=== PATIENT | male | born 1940 | race Caucasian/White ===

== ENCOUNTER 2018-05-26 12:35 | Outpatient (CLI) | payer MEDICARE, OTHER, SELFPAY ==
--- NOTE | 2018-05-26 12:38 | DI.RAD.S_ITS ---
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 COMPARISON: [facility], MR, MR LUMBAR SPINE WITHOUT CONTRAST, 02/09/2018, 15:20. [facility], CR, SPINE LUMB MIN 4VW, 06/05/2014, 14:13. FINDINGS: Bones: No fracture or focal osseous destruction. There is mild anterior wedging of the T12 vertebral body, unchanged. Mild narrowing of the lumbar disc spaces throughout is grossly unchanged. There is prominent anterior plate osteophyte formation, and possible syndesmophyte formation at T11-T12 and T10-T11. There is ankylosis of the right sacroiliac joint. There is also left sacroiliac sclerosis. Facet arthropathy primarily from L3-S1. Soft tissues: Overlying bowel gas pattern is normal. No suspicious soft tissue calcifications. Oblique images: No pars defects. IMPRESSION: Diffuse lumbar disc degeneration as detailed above and facet arthropathy, probably unchanged since 06/05/14. Partially visualized syndesmophyte formation involving the lower thoracic spine in addition to ankylosis of the right sacroiliac joint, suggesting ankylosing spondylitis. Please correlate clinically and with laboratory correlation. Dictated by: Ravin Tejeda M.D. on 05/26/2018 at 13:04 Approved by: Ravin Tejeda M.D. on 05/26/2018 at 13:11
--- NOTE | 2018-05-26 12:38 | DI.RAD.S_ITS ---
PROCEDURE: PAIN L/S TRANSFORAMINAL INJECT INDICATIONS: HNP with left lower extremity radicular FINDINGS: Fluoroscopic spot filming was performed to verify placement of spinal needles at the left L3-4 level(s), as labeled on the films. Appropriate location(s) of the needle tip(s) was confirmed by injection of iodinated contrast. IMPRESSION: Successful left L3-4 needle tip localization for transforaminal epidural steroid injection. Dictated by: Ki Staples M.D. on 05/26/2018 at 16:33 Approved by: Ki Staples M.D. on 05/26/2018 at 16:34
[2018-05-26 13:38] VITALS: BP 143/75; PULSE 58; RESP 18; TEMP 36.1; O2SAT 97
[2018-05-26 14:19] VITALS: BP 146/81; PULSE 55; RESP 16; O2SAT 97
[2018-05-26 14:28] VITALS: BP 138/83; PULSE 55; RESP 16; O2SAT 97
--- NOTE | 2018-05-26 14:28 | P.PCN_ITS ---
Procedures Date/Time Date of procedure: 05/26/18 Time of procedure: 14:26 General Procedure description: PROVIDER: Matt Daniel DO Operative Note PREOP DIAGNOSIS 1. FORAMINAL STENOSIS WITH LE SYMPTOMS, POST OP DIAGNOSIS 1. FORAMINAL STENOSIS WITH LE SYMPTOMS, PROCEDURES 1. FLUOROSCOPICALLY GUIDED CONTRAST CONTROLLED TRANSFORAMINAL EPIDURAL STEROID INJECTION - LEFT L3/4 TFESI SURGEON: Matt Daniel DO INDICATIONS: Matt is referred by Dr. Giron for treatment of Foraminal Stenosis with left LE Symptoms FINDINGS Foraminal Nerve Root Compression secondary to disc disease and facet hypertrophy DESCRIPTION OF PROCEDURE Following denial of allergy and review of potential side effects and complications, including, but not necessarily limited to, infection, allergic reaction, local tissue breakdown, stroke, temporary or permanent nerve injury, paralysis, and possible , the patient indicated that the patient understood and agreed to proceed. An informed consent document was signed by the patient, witnessed by a nurse, and placed in the patient's chart. Additionally, other treatment options including medications, modalities, and physical therapy were reviewed with the patient. After review of previous anaesthesic history and IV conscious sedation the patient was deemed safe to proceed with todays procedure with IV conscious sedation as ASA class II designation. Safety time-out was performed to confirm patient ID, procedure to be performed and site of procedure. IV sedation was not administered the patient remained responsive to all verbal commands In the prone position following sterile prep and drape of the lumbar region, the left L3/4 posterior neuroforamen was identified fluoroscopically. The skin was anesthetized via a 25-gauge 1.5-inch needle with 1% lidocaine solution. At this point, a 25-gauge 3.5-inch spinal needle was atraumatically introduced and advanced under fluoroscopic guidance through the posterior left L3/4 neuroforamen to approximately the anterior aspect of the canal. Depth was confirmed on lateral view. Following negative aspiration, injection of approximately 1.5 cc of Isovue 200 under live fluoroscopy in the AP view confirmed excellent flow along the nerve root, into the epidural space without vascular or intrathecal uptake observed Radiological data, including multiple fluoroscopic views of the lumbosacral spine, reveal a spinal needle at the left L3/4 posterior neuroforamen. Subsequent views show flow of contrast material flowing superiorly and inferiorly along the nerve root confirming epidural flow. Subsequently, a test dose of 1.5 cc of 1% lidocaine solution was administered and patient was observed for two minutes for signs or symptoms of complications , including abdominal pain, shortness of breath, bilateral upper or lower extremity weakness, nausea and vomiting, prior to steroid injection. At this point, a total of 3 cc or 20 mg of dexamethasone and 80mg Depo medrol was injected without incident. The procedure tolerated the procedure well without signs or symptoms of complications prior to transfer to the recovery area continued monitoring without incident. The patient was then transferred to the recovery area where they were observed for an appropriate time after the injection. The patient reported a VAS score of 7 prior to the procedure and a post-procedure VAS of 0. Total Fluoroscopy Time: 24.2 seconds Total Conscious Sedation Time: 0min POST OP INSTRUCTIONS The patient was provided a Pain Log to continue to record their response to the target-specific procedure prior to follow-up visit with their referring physician. Additionally, specific post-injection care instructions and a contact number to our office were provided if concerns arise regarding possible complications associated with the procedure are suspected. Matt Daniel DO Complications: none
[2018-05-26 14:35] VITALS: BP 146/83; PULSE 65; RESP 16; O2SAT 95
[2018-05-26] MEDS: BUPIVACAINE 0.25% (PF) VIAL 2 ML INJ (14:38)
[2018-05-26] MEDS: IOPAMIDOL 15 ML VIAL 3 ML INJ (14:38)
[2018-05-26] MEDS: DEXAMETHASONE 10 MG/ML VIAL 20 MG INJ (14:38)
[2018-05-26] MEDS: methylPREDNISolone acetate 80 MG/ML VIAL INJ (14:38)
[2018-05-26 14:45] VITALS: BP 143/72; PULSE 59; RESP 18; O2SAT 99
== END 2018-05-26 15:04 | disposition home or self-care (01) ==
PROVIDERS: PCP Family Medicine; Visit Provider Physical Medicine & Rehabilitation
DX: M48.061 Spinal stenosis, lumbar region without neurogenic claudication (principal); M51.16 Intervertebral disc disorders with radiculopathy, lumbar region; M47.27 Other spondylosis with radiculopathy, lumbosacral region; Z96.652 Presence of left artificial knee joint
CPT/HCPCS: 64483; 72110; J1040; J1100

== ENCOUNTER → 2020-04-11 12:46 | Outpatient (CLI) | payer MEDICARE, OTHER, SELFPAY ==
--- NOTE | 2020-04-11 12:49 | DI.RAD.S_ITS ---
PROCEDURE: XR LUMBAR SPINE MIN 4V INDICATIONS: Ankylosing spondylitis TECHNIQUE: 4 views of the lumbar spine were acquired. COMPARISON: [facility], MR, MR LUMBAR SPINE WO CON, 04/11/2020, 13:09. [facility], CR, XR LUMBAR SPINE MIN 4V, 05/26/2018, 12:15. FINDINGS: Bones: 5 nonrib-bearing vertebrae are present. There is normal bony alignment. No vertebral body compression fractures. Moderate-sized bridging osteophytes or syndesmophytes appear similar the prior exam. L4-L5 L5-S1 facet joint hypertrophy. No suspicious bony lesions. Soft tissues: Overlying bowel gas pattern is normal. No suspicious soft tissue calcifications. Oblique images: No pars defects. IMPRESSION: Overall no significant interval change. Similar bridging osteophytes or syndesmophytes. No compression fracture. Dictated by: Naren Lopez M.D. on 04/11/2020 at 14:11 Approved by: Naren Lopez M.D. on 04/11/2020 at 14:16
--- NOTE | 2020-04-11 12:49 | DI.RAD.S_ITS ---
PROCEDURE: XR CERVICAL SPINE 2V OR 3V INDICATIONS: Ankylosing spondylitis TECHNIQUE: 4 view(s) of the cervical spine were acquired. COMPARISON: None. FINDINGS: Bones: No fractures or dislocations to the T1 level. The lateral masses of C1 appear intact on the odontoid view. No suspicious bony lesions. Moderate to severe degenerative change most pronounced at C4-C5 and C5-C6. Soft tissues: No prevertebral soft tissue swelling. IMPRESSION: Moderate degenerative change in the cervical spine. Dictated by: Naren Lopez M.D. on 04/11/2020 at 14:16 Approved by: Naren Lopez M.D. on 04/11/2020 at 14:18
--- NOTE | 2020-04-11 12:49 | DI.MRI.S_ITS ---
PROCEDURE: MR LUMBAR SPINE WO CON INDICATIONS: Ankylosing spondylitis TECHNIQUE: Noncontrast sagittal T1 spin echo and T2 fast echo, sagittal STIR, axial T1 and T2 fast spin echo through the lumbar spine. In cases with scoliosis, additional coronal T2 fast spin echo may be performed. COMPARISON: [facility], MR, MR LUMBAR SPINE WITHOUT CONTRAST, 02/09/2018, 15:20. [facility], CR, XR LUMBAR SPINE MIN 4V, 05/26/2018, 12:15. [facility], MR, L-SPINE WITHOUT CONTRAST, 06/14/2014, 13:40. FINDINGS: Image quality: Excellent. Alignment and Curvature: 5 lumbar type vertebral bodies present by plain film. There is loss of normal lumbar lordosis. Mild kyphosis at T11-L1. Mild grade 1 retrolisthesis of L2 on L3 and L3 on L4. Bone Marrow: Marrow is of normal overall signal. There is a new Schmorl's node invaginating the superior L3 endplate with moderate surrounding reactive signal. No acute vertebral body compression fractures. Moderate reactive signal within the endplates adjacent to the L2-L3 and L4-L5 intervertebral discs, which is increased. Mild reactive signal within the endplates adjacent to the L1-L2, L3-L4, and L5-S1 intervertebral discs. Spinal Cord: Conus medullaris terminates at the lower L1 level. Visualized cord demonstrates normal signal and size. Paraspinous Soft Tissues: No paravertebral masses. L1-L2: Mild disc desiccation. Mild facet and ligament flavum hypertrophy. Mild epidural lipomatosis. Mild canal stenosis. No foraminal stenosis. L2-L3: Moderate disc desiccation. Mild disc height loss. Mild diffuse disc bulge. Mild facet and ligamentum hypertrophy. Mild epidural lipomatosis. Mild canal stenosis. Mild bilateral foraminal stenosis. L3-L4: Moderate disc height loss and desiccation. Mild diffuse disc bulge with superimposed broad-based left posterolateral protrusion. Mild facet and ligamentum flavum hypertrophy. Mild epidural lipomatosis. Increased, moderate canal stenosis. No change in mild bilateral foraminal stenosis. L4-L5: Mild disc height loss. Moderate disc desiccation. Mild diffuse disc bulge. Moderate facet and ligamentum flavum hypertrophy. Mild epidural lipomatosis. Increased, moderate canal stenosis. No change in moderate subarticular foraminal stenosis bilaterally. L5-S1: Moderate disc desiccation. Mild disc height loss. Mild diffuse disc bulge. Mild bilateral facet hypertrophy. Mild canal stenosis. Mild left greater than right foraminal stenosis. No change. IMPRESSION: 1. Multilevel degenerative disc and facet disease, as well as ligamentum flavum hypertrophy and epidural lipomatosis. 2. Multilevel canal stenoses, worst at L3-L4 and L4-L5, where there are increased, moderate canal stenoses. 3. Multilevel foraminal stenoses, worst at L4-L5 where there are moderate foraminal stenoses. 4. New Schmorl's node within the superior L3 endplate, possibly developed recently, given the reactive surrounding marrow signal. Dictated by: Bandar Moss M.D. on 04/11/2020 at 13:53 Approved by: Bandar Moss M.D. on 04/11/2020 at 13:58
== END ==
PROVIDERS: PCP Family Medicine; Referring Provider Physical Medicine & Rehabilitation; Visit Provider Physical Medicine & Rehabilitation
DX: M45.9 Ankylosing spondylitis of unspecified sites in spine (principal); M47.26 Other spondylosis with radiculopathy, lumbar region; M47.27 Other spondylosis with radiculopathy, lumbosacral region; M48.061 Spinal stenosis, lumbar region without neurogenic claudication; M48.07 Spinal stenosis, lumbosacral region; E88.2 Lipomatosis, not elsewhere classified
CPT/HCPCS: 72040; 72110; 72148

== ENCOUNTER → 2020-05-08 10:43 | Outpatient (CLI) | payer MEDICARE, OTHER, SELFPAY ==
[2020-05-08 12:04] LABS: COVID19 -Nasal RAPID Negative (Negative)
== END ==
PROVIDERS: PCP Family Medicine; Visit Provider Physician Assistant
DX: Z01.812 Encounter for preprocedural laboratory examination (principal)
CPT/HCPCS: 87635

== ENCOUNTER 2020-05-08 12:16 | Outpatient (CLI) | payer MEDICARE, OTHER, SELFPAY ==
--- NOTE | 2020-05-08 12:17 | DI.RAD.S_ITS ---
PROCEDURE: PAIN L/S FACET INJ/BLK 1ST YASIR COMPARISON: None. INDICATIONS: SPODYLOSIS FINDINGS: On these intraprocedural images, spinal needles are seen on both sides at L2-3 and L3-4, as labeled on the images. Appropriate location of the needle tips is confirmed by injection of a small amount of iodinated contrast. IMPRESSION: Intraprocedural examination within normal limits. Dictated by: Thony Jalloh M.D. on 05/09/2020 at 9:07 Approved by: Thony Jalloh M.D. on 05/09/2020 at 9:07
[2020-05-08 12:26] VITALS: BP 140/82; PULSE 77; RESP 18; TEMP 36.2; O2SAT 97
[2020-05-08 13:11] VITALS: BP 139/80; PULSE 73; RESP 16; O2SAT 94
[2020-05-08] MEDS: BETAMETHASONE 30 MG/5 ML MDV 12 MG INJ (13:12)
[2020-05-08] MEDS: BUPIVACAINE 0.5% (PF) VIAL 2 ML INJ (13:12)
[2020-05-08] MEDS: IOPAMIDOL 15 ML VIAL 3 ML INJ (13:12)
[2020-05-08] MEDS: LIDOCAINE 1% 20 ML 10 ML INJ (13:13)
[2020-05-08 13:15] VITALS: BP 140/85; PULSE 76; RESP 16; O2SAT 94
[2020-05-08 13:20] VITALS: BP 139/84; PULSE 94; RESP 17; O2SAT 93
[2020-05-08 13:25] VITALS: BP 149/99; PULSE 77; RESP 15; O2SAT 94
--- NOTE | 2020-05-08 13:32 | P.PCN_ITS ---
Date/Time/Diagnoses Date of procedure: 05/08/20 Time of procedure: 13:32 Pre-procedure diagnosis: 1. FACET ARTHROPATHY 2. AXIAL LBP 3. MULTILEVEL DDD Post-procedure diagnosis: same Procedure Notes Procedure: 1. FLUOROSCOPICALLY GUIDED CONTRAST CONTROLLED FACET JOINT INJECTIONS BILATERAL L2/3, L3/4 Indications: Matt is referred by for treatment of Axial LBP Physician: Matt Daniel Total Fluoroscopy time (seconds): 22 Total sedation minutes: 0 Complications: none Procedure in detail & Post-procedure care: FINDINGS Multilevel Facet Arthropathy with Clinically significant axial LBP DESCRIPTION OF PROCEDURE Fluoroscopically guided, contrast-controlled bilateral L2/3, L3/4 facet joint injections. Following review of allergy and review of potential side effects and complications, including, but not necessarily limited to, infection, allergic reaction, local tissue breakdown, stroke, temporary or permanent nerve injury, paralysis, and possible , the patient indicated that the patient understood and agreed to proceed. An informed consent document was signed by the patient, witnessed by a nurse, and placed in the patient's chart. Additionally, other treatment options including medications, modalities, and physical therapy were reviewed with the patient. After review of previous anaesthesic history and IV conscious sedation the patient was deemed safe to proceed with today's procedure with IV conscious sedation as ASA class II designation. Safety time-out was performed to confirm patient ID, procedure to be performed and site of procedure. IV sedation was deemed unnecessary and this not administered by the RN after DO order, titrated to patient comfort during the course of the procedure while the patient remained responsive to all verbal commands In the prone position, following sterile prep and drape of the lumbar region, the posterior aspect of the L2/3, L3/4 facet joints were identified fluoroscopically. The skin was anesthetized via a 25-gauge 1.5-inch needle with 1% lidocaine solution into the corresponding facet joints. At this point, a 22- gauge 3.5-inch spinal needle was atraumatically introduced and advanced under fluoroscopic guidance into the corresponding facet joints. Following negative aspiration, injections of approximately 0.2-cc of Isovue 200 confirmed interarticular placement without vascular uptake. The identical procedure was then performed at the L2/3, L3/4 facet joints on the left. Radiological data, including multiple fluoroscopic views of the lumbosacral spine, reveal a spinal needle at the L2/3, L3/4 facet joints bilaterally. Subsequent views show flow of contrast material both superiorly and inferiorly within the joint space without vascular or intrathecal uptake. At this point, a total of 0.5 cc including a mixture of 0.25cc Marcaine and 0.25cc betamethasone was injected without complication into each of the corresponding facet joints. The patient tolerated the procedure well without signs or symptoms of complications prior to transfer to the recovery area continued monitoring without incident. The patient was then transferred to the recovery area where they were observed for an appropriate period of time after the injection. The patient reported a VAS score of 7 prior to the procedure and a post-procedure VAS of 0. POST OP INSTRUCTIONS The patient was provided a Pain Log to continue to record their response to the target-specific procedure prior to follow-up visit with their referring physician. Additionally, specific post-injection care instructions and a contact number to our office were provided if concerns arise regarding possible complications associated with the procedure are suspected.
[2020-05-08 13:40] VITALS: BP 144/76; PULSE 72; RESP 18; O2SAT 97
--- NOTE | 2020-05-08 13:43 | PC.NURSE ---
1333 pt returned to pre proc room by . No intraop medications given. Independent transfer from to chair. Resumed monitoring by Monique
--- NOTE | 2020-05-08 16:18 | PC.NURSE ---
Pt tolerated procedure well. Vitals stable upon transfer to [facility] in post procedure/recovery room. All meds administered by Dr. Daniel.
== END 2020-05-08 13:45 | disposition home or self-care (01) ==
LOC: RAD 12:17
PROVIDERS: PCP Family Medicine; Referring Provider Physical Medicine & Rehabilitation; Visit Provider Physical Medicine & Rehabilitation
DX: M47.816 Spondylosis without myelopathy or radiculopathy, lumbar region (principal); M54.5 Low back pain; M51.36 Other intervertebral disc degeneration, lumbar region
CPT/HCPCS: 64493; 64494; J0702; J1100

== ENCOUNTER → 2020-06-25 10:58 | Outpatient (CLI) | payer MEDICARE, OTHER, SELFPAY ==
[2020-06-27 06:08] LABS: COVID19 Sendout Not Detected (Not Detect)
== END ==
PROVIDERS: PCP Family Medicine; Visit Provider Physician Assistant
DX: Z11.59 Encounter for screening for other viral diseases (principal)
CPT/HCPCS: 87635

== ENCOUNTER 2020-06-28 07:29 | Outpatient (CLI) | payer MEDICARE, OTHER, SELFPAY ==
[2020-06-28] VITALS (8 sets, daily range): BP systolic 125–158; BP diastolic 68–90; PULSE 67–75; RESP 14–19; TEMP 36.1; O2SAT 95–99
--- NOTE | 2020-06-28 07:34 | DI.RAD.S_ITS ---
PROCEDURE: PAIN L/S FACET INJ/BLK 1ST YASIR COMPARISON: [facility], , PAIN L/S FACET INJ/BLK 1ST YASIR, 05/08/2020, 12:12. INDICATIONS: SPONDYLOSIS FINDINGS: These fluoroscopic images were performed for intraprocedural localization. On these images, bilateral spinal needles are seen at the L2, L3, and L4 levels. The appropriate positions of the tips of the needles were confirmed by injection of a small amount of nonionic contrast. IMPRESSION: Intraprocedural examination within normal limits. Dictated by: Thony Jalloh M.D. on 06/28/2020 at 8:50 Approved by: Thony Jalloh M.D. on 06/28/2020 at 8:51
[2020-06-28] MEDS: IOPAMIDOL 15 ML VIAL 3 ML INJ (08:47)
[2020-06-28] MEDS: LIDOCAINE 1% 20 ML 10 ML INJ (08:47)
[2020-06-28] MEDS: BUPIVACAINE 0.5% (PF) VIAL 5 ML INJ (08:47)
[2020-06-28] MEDS: fentaNYL 100 MCG/2 ML INJ 50 MCG IV (08:48)
[2020-06-28] MEDS: MIDAZOLAM 5 MG/5 ML VIAL IV (08:49)
--- NOTE | 2020-06-28 08:56 | P.PCN_ITS ---
Date/Time/Diagnoses Date of procedure: 06/28/20 Time of procedure: 08:56 Pre-procedure diagnosis: 1. FACET ARTHROPATHY Post-procedure diagnosis: same Procedure Notes Procedure: 1. BILATERAL L2, L3, L4 DIAGNOSTIC MB BLOCKS Indications: Matt is referred by Dr. Giron for treatment of Bilateral Axial LBP. Physician: Matt Daniel Total Fluoroscopy time (seconds): 19 Total sedation minutes: 20 Complications: none Procedure in detail & Post-procedure care: DESCRIPTION OF PROCEDURE Fluoroscopically guided, contrast-controlled bilateral L2, L3, L4 medial branch blocks with 0.5cc of 0.5% Marcaine. Following review of allergy and review of potential side effects and complications, including, but not necessarily limited to, infection, allergic reaction, local tissue breakdown, nerve injury, paralysis, stroke and possible , the patient indicated that the patient understood and agreed to proceed. An informed consent document was signed by the patient, witnessed by a nurse, and placed in the patient's chart. After review of previous anaesthesic history and IV conscious sedation the patient was deemed safe to proceed with today's procedure with IV conscious sedation as ASA class II designation. Safety time-out was performed to confirm patient ID, procedure to be performed and site of procedure. IV sedation was accomplished with a combination of 2mg of Versed and 50mcg of Fentantyl was administered by the RN after DO order, titrated to patient comfort during the course of the procedure while the patient remained responsive to all verbal commands In the prone position, following sterile prep and drape of the lumbar region, the right L2, L3, L4 anatomical location of the medial branch of the dorsal ramus was identified fluoroscopically. Subsequently an anesthetic skin wheal us ing 1% lidocaine solution was initiated at each of the anatomical spots. Subsequently then a 22-gauge 3.5-inch spinal needle was atraumatically introduced and advanced under fluoroscopic guidance at each of the corresponding sites at the right L2, L3, L4 MB. After negative aspiration, 0.2cc of Isovue 200 was injected, confirming placement without vascular or intrathecal uptake. Subsequently then 0.5cc of 0.5% Marcaine solution was injected at each of the corresponding sites at the right L2, L3, L4 medial branch locations. The identical procedure was replicated on the left. The patient tolerated the procedure well without signs or symptoms of complications. The patient tolerated the procedure well without signs or symptoms of complications prior to transfer to the recovery area continued monitoring without incident. Post-procedure, the patient was monitored initiating provocative activities to measure the amount of relief from block of the facetogenic pain. The patient reported a VAS of 7 prior to the procedure and a post-procedure VAS of 1. It has been a pleasure to assist in the diagnostic and therapeutic care of your patient. POST OP INSTRUCTIONS The patient was provided with a Pain Log to complete over the next several hours and subsequent days prior to the patient's follow up with the ordering physician. 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 The patient is aware, was provided, once again, with a Pain Log and will follow up with the referring physician for review and clinical correlation
== END 2020-06-28 09:18 | disposition home or self-care (01) ==
LOC: RAD 07:30
PROVIDERS: PCP Family Medicine; Referring Provider Family Medicine; Visit Provider Physical Medicine & Rehabilitation
DX: M47.816 Spondylosis without myelopathy or radiculopathy, lumbar region (principal); M54.5 Low back pain
CPT/HCPCS: 64493; 64494; 99152; J2250; J3010

== ENCOUNTER → 2020-09-24 10:06 | Outpatient (CLI) | payer MEDICARE, OTHER, SELFPAY ==
[2020-09-24 12:32] LABS: COVID19 -Nasal RAPID Negative (Negative)
== END ==
PROVIDERS: PCP Family Medicine; Visit Provider Physical Medicine & Rehabilitation
DX: Z11.59 Encounter for screening for other viral diseases (principal)
CPT/HCPCS: 87635; C9803

== ENCOUNTER 2020-09-25 10:24 | Outpatient (CLI) | payer MEDICARE, OTHER, SELFPAY ==
[2020-09-25] VITALS (9 sets, daily range): BP systolic 117–154; BP diastolic 62–76; PULSE 68–74; RESP 11–22; TEMP 36.1; O2SAT 96–98
--- NOTE | 2020-09-25 10:26 | DI.RAD.S_ITS ---
PROCEDURE: PAIN L/S MED/LAT N RFA BILAT INDICATIONS: SPONDYLOSIS COMPARISON: None. FINDINGS: Fluoroscopic spot filming was performed to verify bilateral placement of spinal needles at the L2, L3, and L4 level(s), as labeled on the films. Appropriate location(s) of the needle tip(s) was confirmed by injection of iodinated contrast. IMPRESSION: Successful needle tip localization bilaterally for medial branch rhizotomy procedures, 6 total, involving the L2, L3,, and L4 nerve roots. Dictated by: Ki Staples M.D. on 09/25/2020 at 12:20 Approved by: Ki Staples M.D. on 09/25/2020 at 12:21
[2020-09-25] MEDS: MIDAZOLAM 5 MG/5 ML VIAL IV (11:27)
[2020-09-25] MEDS: LIDOCAINE 1% 20 ML INJ (11:55)
[2020-09-25] MEDS: BUPIVACAINE 0.5% (PF) VIAL 5 ML INJ (11:56)
--- NOTE | 2020-09-25 12:01 | P.PCN_ITS ---
Date/Time/Diagnoses Date of procedure: 09/25/20 Time of procedure: 12:01 Pre-procedure diagnosis: 1. RECALCITRANT FACET ARTHROPATHY Post-procedure diagnosis: same Procedure Notes Procedure: 1. BILATERAL L2, L3, L4 MEDIAL BRANCH RADIOFREQUENCY NEUROTOMY Indications: Matt is referred by Dr. Giron for treatment of facet arthropathy. Physician: Matt Daniel Total Fluoroscopy time (seconds): 20 Total sedation minutes: 28 Complications: none Procedure in detail & Post-procedure care: DESCRIPTION OF PROCEDURE Bilateral L2, L3, L4 medial branch radiofrequency neurotomy The patient is well known to this clinic having undergone previous facet injections with good but temporary relief. The patient has experienced appropriate, concordant relief with previous facet and median branch blocks but the patient's pain has been recalcitrant to further conservative measures. Therefore, based upon the patient's relief and persistent symptoms, the patient is considered an appropriate candidate for facet rhizotomy. All of the patient's questions regarding the risks versus benefits of the procedure, including, but not limited to, bleeding, infection, temporary as well as lasting nerve injury, paralysis, stroke, and , as well treatment alternatives were answered to satisfaction. After obtaining informed consent, denial of pertinent drug allergies, as well as being made aware of the potential risks of bleeding, infection, spinal cord trauma, paralysis, temporary and permanent nerve damage, seizure, stroke, and possible , the patient was brought to the fluoroscopy suite and positioned prone on the fluoroscopy table. The lumbar region was prepped with Betadine and covered with a fenestrated drape in the usual sterile fashion. Appropriate monitors applied including pulse oximeter, pulse, and blood pressure for regular monitoring throughout the procedure. After review of previous anaesthesic history and IV conscious sedation the patient was deemed safe to proceed with today's procedure with IV conscious sedation as ASA class II designation. Safety time-out was performed to confirm patient ID, procedure to be performed and site of procedure. IV sedation was accomplished with a combination of 2mg of Versed administered by the RN after DO order, titrated to patient comfort during the course of the procedure while the patient remained responsive to all verbal commands. After local infiltration using 1% lidocaine, under fluoroscopic guidance, a 10- cm RF insulated needle with a 10-mm active tip was positioned parallel to the junction of the right the superior articulating process where the L4 medial branch resides. Needle placement was confirmed with motor stimulation of .5v on the right which produced local stimulation without radicular component. The stimulation was then increased to 2v with, once again, only local multifidus stimulation without radicular component. The needle was then removed and the identical procedure was performed along the length of the right L3 medial branch with motor stimulation at .7v on the right. The identical procedure was once again performed along the length of the right L2 and medial branch with motor stimulation of .5v on the right. The medial branches were then anesthetised with 0.5% marcaine. This was then followed by two discreet lesions performed at 80 degrees Celsius for 90 seconds each. The identical procedures were repeated on the left. The patient tolerated the procedure well without signs or symptoms of complications prior to transfer to the recovery area continued monitoring without incident. The patient was then transferred to the recovery area where they were observed for an appropriate period of time after the injection. The patient reported a VAS score of 9 prior to the procedure and a post-procedure VAS of 0. POST OP INSTRUCTIONS The patient was provided a Pain Log to continue to record the patient's response to the target-specific procedure prior to the patient's follow-up visit with the referring physician. Additionally, specific post-injection care instructions and a contact number to our office were provided if concerns arise regarding possible complications associated with the procedure are suspected.
== END 2020-09-25 12:15 | disposition home or self-care (01) ==
LOC: RAD 10:25
PROVIDERS: PCP Family Medicine; Referring Provider Family Medicine; Visit Provider Physical Medicine & Rehabilitation
DX: M47.816 Spondylosis without myelopathy or radiculopathy, lumbar region (principal)
CPT/HCPCS: 64636; 64635; 99152; 99153; J2250; J3010

== ENCOUNTER → 2022-01-20 10:00 | Outpatient (CLI) | payer MEDICARE, OTHER, SELFPAY ==
[2022-01-20 12:19] LABS: COVID19 -Nasal RAPID Negative (Negative)
== END ==
PROVIDERS: PCP Family Medicine; Visit Provider Physical Medicine & Rehabilitation
DX: Z20.822 Contact with and (suspected) exposure to COVID-19 (principal)
CPT/HCPCS: 87635; C9803

== ENCOUNTER 2022-01-21 09:28 | Outpatient (CLI) | payer MEDICARE, OTHER, SELFPAY ==
[2022-01-21] VITALS (8 sets, daily range): BP systolic 137–173; BP diastolic 70–88; PULSE 65–74; RESP 14–18; TEMP 36.8; O2SAT 94–98
--- NOTE | 2022-01-21 09:30 | DI.RAD.S_ITS ---
PROCEDURE: PAIN L INTERLAMINAR/CAUDAL INJ INDICATIONS: SPONDYLOSIS COMPARISON: [facility], , PAIN L/S MED/LAT N RFA BILAT, 09/25/2020, 11:27. FINDINGS: Fluoroscopic spot filming was performed to verify placement of a spinal needle at the L3-L4 level, as labeled on the films. Appropriate location of the needle tip was confirmed by injection of iodinated contrast. IMPRESSION: Intraprocedural examination within normal limits. Dictated by: Thony Jalloh M.D. on 01/21/2022 at 10:22 Approved by: Thony Jalloh M.D. on 01/21/2022 at 10:22
[2022-01-21] MEDS: MIDAZOLAM 2 MG/2 ML VIAL IV (10:58)
[2022-01-21] MEDS: IOPAMIDOL 15 ML VIAL 3 ML INJ (11:01)
[2022-01-21] MEDS: DEXAMETHASONE 10 MG/ML VIAL 20 MG INJ (11:02)
[2022-01-21] MEDS: BUPIVACAINE 0.25% (PF) VIAL 2 ML INJ (11:02)
[2022-01-21] MEDS: BETAMETHASONE 30 MG/5 ML MDV 6 MG INJ (11:03)
--- NOTE | 2022-01-21 11:09 | P.PCN_ITS ---
Date/Time/Diagnoses Date of procedure: 01/21/22 Time of procedure: 11:09 Pre-procedure diagnosis: 1. HNP WITH RADICULAR FEATURES, 2. MULTILEVEL CENTRAL STENOSIS, Post-procedure diagnosis: same Procedure Notes Procedure: 1. FLUOROSCOPICALLY GUIDED CONTRAST CONTROLLED INTERLAMINAR EPIDURAL STEROID INJECTION - L3/4 Indications: Matt is referred by Dr. Giron for treatment of Bilateral Foraminal Stenosis L>R LE symptoms. Physician: Matt Daniel Total Fluoroscopy time (seconds): 7 Total sedation minutes: 10 Complications: none Procedure in detail & Post-procedure care: FINDINGS Multilevel Central Spinal Stenosis with Nerve Root Compression DESCRIPTION OF PROCEDURE Fluoroscopically guided, contrast-controlled L3/4 translaminar epidural steroid injection. Following review of allergy and review of potential side effects and complications, including, but not necessarily limited to, infection, allergic reaction, local tissue breakdown, temporary as well as permanent nerve injury, paralysis, stroke and possible , the patient indicated that the patient understood and agreed to proceed. An informed consent document was signed by the patient, witnessed by a nurse, and placed in the patient's chart. Additionally, other treatment options including modalities, medications, and physical therapy were reviewed with the patient. After review of previous anaesthesic history and IV conscious sedation the patient was deemed safe to proceed with today?s procedure with IV conscious sedation as ASA class II designation. Safety time-out was performed to confirm patient ID, procedure to be performed and site of procedure. IV sedation was accomplished with a combination of 2mg of Versed was administered by the RN after DO order, titrated to patient comfort during the course of the procedure while the patient remained responsive to all verbal commands. In the prone position, following sterile prep and drape of the lumbar region, the L3/4 translaminar space was identified fluoroscopically. The skin was anesthetized via a 25-gauge, 1.5-inch needle with 1% lidocaine solution. At this point, a 22-gauge short bevel spinal needle was atraumatically introduced and advanced under fluoroscopic guidance into the region of the L3/4 translaminar space. Depth was confirmed on lateral view. Radiological data, including multiple fluoroscopic views of the lumbar spine, reveal a spinal needle at the L3/4 translaminar space. Lateral views then show placement of the needle in the epidural space. Subsequent views show contrast material flowing superiorly and inferiorly in the epidural space. No vascular or intrathecal uptake is observed. At this point, using loss of resistance technique with saline and air, the epidural space was entered. This was confirmed following negative aspiration with injection of approximately 1.5 cc of Isovue 200, showing excellent epidural flow without vascular or intrathecal uptake. At this point, 1cc of 1% lidocaine solution combined with 3cc or 20mg of dexamethasone and 6mg of betamethasone was injected without incident. The patient tolerated the procedure well without signs or symptoms of complications prior to transfer to the recovery area continued monitoring without incident. The patient was then transferred to the recovery area where they were observed for an appropriate period of time after the injection. The patient reported a VAS score of 6 prior to the procedure and a post- procedure VAS of 0. POST OP INSTRUCTIONS The patient was provided a Pain Log to continue to record their response to the target-specific procedure prior to follow-up visit with their referring physician. Additionally, specific post-injection care instructions and a contact number to our office were provided if concerns arise regarding possible complications associated with the procedure are suspected.
== END 2022-01-21 11:29 | disposition home or self-care (01) ==
PROVIDERS: PCP Family Medicine; Referring Provider Physical Medicine & Rehabilitation; Visit Provider Physical Medicine & Rehabilitation
DX: M51.16 Intervertebral disc disorders with radiculopathy, lumbar region (principal); M48.061 Spinal stenosis, lumbar region without neurogenic claudication
CPT/HCPCS: 62323; 99152; J0702; J1100; J2250

== ENCOUNTER → 2022-10-16 12:09 | Outpatient (CLI) | payer MEDICARE, OTHER, SELFPAY ==
--- NOTE | 2022-10-16 12:13 | DI.RAD.S_ITS ---
PROCEDURE: XR LUMBAR SPINE MIN 4V INDICATIONS: BACK PAIN TECHNIQUE: 5 views of the lumbar spine were acquired, including bilateral oblique views. COMPARISON: [facility], MR, MR LUMBAR SPINE WO CON, 04/11/2020, 13:09. [facility], CR, XR LUMBAR SPINE MIN 4V, 04/11/2020, 13:23. FINDINGS: Bones: 5 nonrib-bearing vertebrae are present. There is normal bony alignment. No vertebral body compression fractures. No suspicious bony lesions. Multilevel degenerative changes are seen. L2-3 has 4 mm retrolisthesis. There is disc space narrowing at L2-3. Anterior osteophytes are seen anteriorly at L1-2, L2-3, and L3-4. There is facet arthrosis in the lower lumbar spine. Soft tissues: Overlying bowel gas pattern is normal. No suspicious soft tissue calcifications. Oblique images: No pars defects. IMPRESSION: 1. Multilevel degenerative changes with disc disease which is most severe at L2-3. 2. No acute abnormality. Dictated by: Chuy Christianson M.D. on 10/16/2022 at 12:44 Approved by: Chuy Christianson M.D. on 10/16/2022 at 12:46
== END ==
PROVIDERS: PCP Nurse Practitioner Family; Referring Provider Physical Medicine & Rehabilitation; Visit Provider Physical Medicine & Rehabilitation
DX: C85.10 Unspecified B-cell lymphoma, unspecified site (principal); C73 Malignant neoplasm of thyroid gland; M47.27 Other spondylosis with radiculopathy, lumbosacral region; M47.26 Other spondylosis with radiculopathy, lumbar region; M51.16 Intervertebral disc disorders with radiculopathy, lumbar region; M45.0 Ankylosing spondylitis of multiple sites in spine; M70.72 Other bursitis of hip, left hip; Z96.652 Presence of left artificial knee joint
CPT/HCPCS: 72110; 99214

== ENCOUNTER 2022-11-11 13:39 | Outpatient (CLI) | payer MEDICARE, OTHER, SELFPAY ==
[2022-11-11] VITALS (7 sets, daily range): BP systolic 126–163; BP diastolic 68–76; PULSE 79–85; RESP 17–23; TEMP 36.5; O2SAT 95–99
--- NOTE | 2022-11-11 13:40 | DI.RAD.S_ITS ---
PROCEDURE: PAIN L/S FACET INJ/BLK 1ST YASIR COMPARISON: [facility], , PAIN L/S FACET INJ/BLK 1ST YASIR, 06/28/2020, 8:36. INDICATIONS: SPONDYLOSIS FINDINGS: C-arm fluoroscopy was utilized, and a single image was obtained, demonstrating placement of 3 needles for lumbar medial branch block. IMPRESSION: Imaging guidance utilized for a medial branch block procedure performed by the referring pain physician. Dictated by: Dillon Davis M.D. on 11/11/2022 at 16:48 Approved by: Dillon Davis M.D. on 11/11/2022 at 16:50
[2022-11-11] MEDS: MIDAZOLAM 2 MG/2 ML VIAL IV (14:41)
[2022-11-11] MEDS: IOPAMIDOL 15 ML VIAL 3 ML INJ (14:46)
[2022-11-11] MEDS: BUPIVACAINE 0.5% (PF) 30 ML VIAL 5 ML INJ (14:46)
[2022-11-11] MEDS: LIDOCAINE 1% (PF) 5 ML INJ (14:47)
--- NOTE | 2022-11-11 15:02 | P.PCN_ITS ---
Date/Time/Diagnoses Date of procedure: 11/11/22 Time of procedure: 15:02 Pre-procedure diagnosis: FACET ARTHROPATHY Post-procedure diagnosis: same Procedure Notes Procedure: 1. BILATERAL L2, L3 AND L4 DIAGNOSTIC MB BLOCKS Indications: Matt is referred by RIZWAN Jackson for treatment of Bilateral Axial LBP. Physician: Matt Daniel Total Fluoroscopy time (seconds): 13 Total sedation minutes: 16 Complications: none Procedure in detail & Post-procedure care: DESCRIPTION OF PROCEDURE Fluoroscopically guided, contrast-controlled bilateral L2, L3, L4 medial branch blocks with 0.5cc of 0.5% Marcaine. Following review of allergy and review of potential side effects and complications, including, but not necessarily limited to, infection, allergic reaction, local tissue breakdown, nerve injury, paralysis, stroke and possible , the patient indicated that the patient understood and agreed to proceed. An informed consent document was signed by the patient, witnessed by a nurse, and placed in the patient's chart. After review of previous anaesthesic history and IV conscious sedation the patient was deemed safe to proceed with today's procedure with IV conscious sedation as ASA class II designation. Safety time-out was performed to confirm patient ID, procedure to be performed and site of procedure. IV sedation was accomplished with a combination of 2mg of Versed was administered by the RN after DO order, titrated to patient comfort during the course of the procedure while the patient remained responsive to all verbal commands In the prone position, following sterile prep and drape of the lumbar region, the right L2, L3 and L4 anatomical location of the medial branch of the dorsal ramus was identified fluoroscopically. Subsequently an anesthetic skin wheal using 1% lidocaine solution was initiated at each of the anatomical spots. Subsequently then a 22-gauge 3.5-inch spinal needle was atraumatically introduced and advanced under fluoroscopic guidance at each of the corresponding sites at the right L2, L3 and L4 MB. After negative aspiration, 0.2cc of Isovue 200 was injected, confirming placement without vascular or intrathecal uptake. Subsequently then 0.5cc of 0.5% Marcaine solution was injected at each of the corresponding sites at the right L2, L3 and L4 medial branch locations. The identical procedure was replicated on the left. The patient tolerated the p rocedure well without signs or symptoms of complications. The patient tolerated the procedure well without signs or symptoms of complications prior to transfer to the recovery area continued monitoring without incident. Post-procedure, the patient was monitored initiating provocative activities to measure the amount of relief from block of the facetogenic pain. The patient reported a VAS of 7 prior to the procedure and a post-procedure VAS of 1. It has been a pleasure to assist in the diagnostic and therapeutic care of your patient. POST OP INSTRUCTIONS The patient was provided with a Pain Log to complete over the next several hours and subsequent days prior to the patient's follow up with the ordering physician. 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 The patient is aware, was provided, once again, with a Pain Log and will follow up with the referring physician for review and clinical correlation
== END 2022-11-11 15:15 | disposition home or self-care (01) ==
PROVIDERS: PCP Nurse Practitioner Family; Referring Provider Physical Medicine & Rehabilitation; Visit Provider Physical Medicine & Rehabilitation
DX: M47.816 Spondylosis without myelopathy or radiculopathy, lumbar region (principal)
CPT/HCPCS: 64493; 64494; 99152; J2250

== ENCOUNTER → 2023-02-12 10:43 | Outpatient (CLI) | payer MEDICARE, OTHER, SELFPAY ==
--- NOTE | 2023-02-25 10:34 | PM.PFT.1 ---
Pulmonary Function Test Referral & Results Date Patient Seen: 02/12/23 Results: The spirometry demonstrates an FVC of 3.13 L which is 84% of predicted. The FEV1 was measured at 2.17 L which is 84% of predicted. The FEV1/FVC ratio was 70 which is 97% of predicted. Following the administration of bronchodilator there was a 30% improvement in FEF 25-75%. Lung volumes show an SVC of 3.50 L which is 83% of predicted. The diffusing capacity was measured at 23.93 which is 76% of predicted. The maximum voluntary ventilation was normal Interpretation: This study demonstrates possibly very mild obstructive lung disease based on minimal reduction in FEV1 although FEV1/FVC ratio is preserved. There is some evidence of benefit in small airway flow after bronchodilator administration based on improvement in FEF 25-75% as above There may also be minimal restrictive lung disease present based on minimal reduction in lung volumes which possibly explain some of the abnormality in the FEV1 above Diffusing capacity may also be minimally reduced suggesting the possibility of disease at the capillary alveolar level Clinical correlation suggested
== END ==
PROVIDERS: PCP Nurse Practitioner Family; Referring Provider Internal Medicine Pulmonary Disease; Visit Provider Internal Medicine Pulmonary Disease
DX: R93.89 Abnormal findings on diagnostic imaging of other specified body structures (principal); J98.4 Other disorders of lung; J98.8 Other specified respiratory disorders; I25.10 Atherosclerotic heart disease of native coronary artery without angina pectoris; Z87.891 Personal history of nicotine dependence
CPT/HCPCS: 71250; 94060; 94726; 94729

== ENCOUNTER → 2023-02-12 11:42 | Outpatient (CLI) | payer MEDICARE, OTHER, SELFPAY ==
--- NOTE | 2023-02-12 | DI.CT.S_ITS ---
PROCEDURE: CT CHEST WO CON INDICATIONS: Chest Nodules TECHNIQUE: Noncontrast 5 mm thick sections acquired from the pulmonary apices to the posterior costophrenic angles. 1 mm lung window, 5 mm thick coronal and sagittal and 7 mm axial MIP reformats were then acquired. For radiation dose reduction, the following was used: automated exposure control, adjustment of mA and/or kV according to patient size. COMPARISON: [facility], CT, CT CHEST W CON, 07/30/2022, 18:06. [facility], CT, CT CHEST WO CON, 09/25/2022, 13:00. FINDINGS: Image quality: Good Lungs and pleura: No pleural effusions. Scattered scarring and atelectasis. Previously seen bowel mixed ground-glass and consolidations the have nearly resolved. No new/enlarging/overtly suspicious pulmonary nodule. A micro nodule in the left upper lung is stable (). Other micro nodules/granulomas are present. Mediastinum, heart, and esophagus: No hiatal hernia. Coronary calcifications. Mild thickening of the pericardium. No pathologic adenopathy by size criteria. Chest wall and thyroid: Exophytic thyroid nodule in the left measuring at least 3 cm is stable. No axillary adenopathy. Upper abdomen: Partially visualized, limiting evaluation on these noncontrast images. There is no gross abnormality. Splenic small calcified granulomas are present. Suspected liver cysts, and subcentimeter lesions are too small to characterize, again seen. Bones: Degenerative changes, no acute or suspicious osseous finding. ALL contiguous calcifications. IMPRESSION: Nearly resolved consolidative and ground-glass opacities in the bilateral lungs. Small areas of remnant scarring/atelectasis are present. There are also micro nodules and granulomas, without overtly suspicious features. If the patient is considered high risk, consider [address] for further imaging, versus enrollment in lung cancer screening. Consider thyroid ultrasound to evaluate the left thyroid nodule, if not already obtained elsewhere. Other incidental findings are described above. Dictated by: Kelton Todd M.D. on 02/23/2023 at 16:02 Approved by: Kelton Todd M.D. on 02/23/2023 at 16:09
== END ==
PROVIDERS: PCP Nurse Practitioner Family; Referring Provider Internal Medicine Pulmonary Disease; Visit Provider Internal Medicine Pulmonary Disease
DX: R93.89 Abnormal findings on diagnostic imaging of other specified body structures (principal); I25.10 Atherosclerotic heart disease of native coronary artery without angina pectoris
CPT/HCPCS: 71250

== ENCOUNTER 2023-03-10 09:12 | Outpatient (CLI) | payer MEDICARE, OTHER, SELFPAY ==
[2023-03-10] VITALS (8 sets, daily range): BP systolic 132–165; BP diastolic 70–93; PULSE 64–72; RESP 14–40; TEMP 36.2; O2SAT 97–99
--- NOTE | 2023-03-10 09:14 | DI.RAD.S_ITS ---
PROCEDURE: PAIN L/S FACET INJ/BLK 1ST YASIR COMPARISON: [facility], XA, PAIN L/S FACET INJ/BLK 1ST YASIR, 11/11/2022, 15:46. INDICATIONS: SPONDYLOSIS FINDINGS: Spot fluoroscopic images demonstrating needle placement at L2, L3 and L4 bilaterally. Contrast opacification is noted. IMPRESSION: Needle placement as above. Dictated by: Felicia Wu M.D. on 03/10/2023 at 17:56 Approved by: Felicia Wu M.D. on 03/10/2023 at 17:56
[2023-03-10] MEDS: MIDAZOLAM 2 MG/2 ML VIAL IV (10:55)
[2023-03-10] MEDS: LIDOCAINE 1% (PF) 5 ML INJ (11:00)
[2023-03-10] MEDS: IOPAMIDOL 15 ML VIAL 3 ML INJ (11:02)
[2023-03-10] MEDS: LIDOCAINE 2% INJ MDV 20ML INJ (11:03)
--- NOTE | 2023-03-10 11:14 | P.PCN_ITS ---
Date/Time/Diagnoses Date of procedure: 03/10/23 Time of procedure: 11:14 Pre-procedure diagnosis: 1. FACET ARTHROPATHY Post-procedure diagnosis: same Procedure Notes Procedure: 1. BILATERAL L2, L3 AND L4 DIAGNOSTIC MB BLOCKS Indications: Matt is referred by ANGELIA Jackson for treatment of Bilateral Axial LBP. Physician: Matt Daniel Total Fluoroscopy time (seconds): 14 Total sedation minutes: 15 Complications: none Procedure in detail & Post-procedure care: DESCRIPTION OF PROCEDURE Fluoroscopically guided, contrast-controlled bilateral L2, L3, L4 medial branch blocks with 0.5cc of 2% Lidocaine. Following review of allergy and review of potential side effects and complications, including, but not necessarily limited to, infection, allergic reaction, local tissue breakdown, nerve injury, paralysis, stroke and possible , the patient indicated that the patient understood and agreed to proceed. An informed consent document was signed by the patient, witnessed by a nurse, and placed in the patient's chart. After review of previous anaesthesic history and IV conscious sedation the patient was deemed safe to proceed with today's procedure with IV conscious sedation as ASA class II designation. Safety time-out was performed to confirm patient ID, procedure to be performed and site of procedure. IV sedation was accomplished with a combination of 2mg of Versed was administered by the RN after DO order, titrated to patient comfort during the course of the procedure while the patient remained responsive to all verbal commands In the prone position, following sterile prep and drape of the lumbar region, the right L2, L3, L4 anatomical location of the medial branch of the dorsal ramus was identified fluoroscopically. Subsequently an anesthetic skin wheal using 1% lidocaine solution was initiated at each of the anatomical spots. Subsequently then a 22-gauge 3.5-inch spinal needle was atraumatically introduced and advanced under fluoroscopic guidance at each of the corresponding sites at the right L2, L3, L4 MB. After negative aspiration, 0.2cc of Isovue 200 was injected, confirming placement without vascular or intrathecal uptake. Subsequently then 0.5cc of 2% Lidocaine solution was injected at each of the corresponding sites at the right L2, L3, L4 medial branch locations. The identical procedure was replicated on the left. The patient tolerated the procedure well without signs or symptoms of complications. The patient tolerated the procedure well without signs or symptoms of complications prior to transfer to the recovery area continued monitoring with out incident. Post-procedure, the patient was monitored initiating provocative activities to measure the amount of relief from block of the facetogenic pain. The patient reported a VAS of 7 prior to the procedure and a post-procedure VAS of 1. It has been a pleasure to assist in the diagnostic and therapeutic care of your patient. POST OP INSTRUCTIONS The patient was provided with a Pain Log to complete over the next several hours and subsequent days prior to the patient's follow up with the ordering physician. 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 The patient is aware, was provided, once again, with a Pain Log and will follow up with the referring physician for review and clinical correlation
== END 2023-03-10 11:30 | disposition home or self-care (01) ==
LOC: RAD 09:14
PROVIDERS: PCP Nurse Practitioner Family; Referring Provider Physical Medicine & Rehabilitation; Visit Provider Physical Medicine & Rehabilitation
DX: M47.816 Spondylosis without myelopathy or radiculopathy, lumbar region (principal)
CPT/HCPCS: 64493; 64494; 99152; J2250

== ENCOUNTER 2023-07-07 10:11 | Outpatient (CLI) | payer MEDICARE, OTHER, SELFPAY ==
[2023-07-07] VITALS (15 sets, daily range): BP systolic 133–161; BP diastolic 65–89; PULSE 66–75; RESP 16–18; TEMP 36.8; O2SAT 95–97
--- NOTE | 2023-07-07 10:12 | DI.RAD.S_ITS ---
PROCEDURE: PAIN L/S MED/LAT N RFA BILAT INDICATIONS: SPONDYLOSIS COMPARISON: [facility], , PAIN L/S MED/LAT N RFA BILAT, 09/25/2020, 11:27. FINDINGS: Fluoroscopic spot filming was performed to verify placement of spinal needles at the bilateral L2, L3 and L4 pedicles level(s), as labeled on the films. Appropriate location(s) of the needle tip(s) was confirmed by injection of iodinated contrast. IMPRESSION: Access needles at bilateral L2, L3 and L4 pedicles for bilateral median branch block. Dictated by: Angie Chavez MD, PhD on 07/07/2023 at 13:07 Approved by: Angie Chavez MD, PhD on 07/07/2023 at 13:08
[2023-07-07] MEDS: MIDAZOLAM 2 MG/2 ML VIAL IV (11:32)
[2023-07-07] MEDS: LIDOCAINE 1% 20 ML 5 ML INJ (11:34)
[2023-07-07] MEDS: BUPIVACAINE 0.5% (PF) 10 ML VIAL 5 ML INJ (11:35)
[2023-07-07] MEDS: fentaNYL 100 MCG/2 ML INJ 50 MCG IV (12:02)
--- NOTE | 2023-07-07 12:19 | P.PCN_ITS ---
Date/Time/Diagnoses Date of procedure: 07/07/23 Time of procedure: 12:19 Pre-procedure diagnosis: 1. RECALCITRANT FACET ARTHROPATHY Post-procedure diagnosis: same Procedure Notes Procedure: 1. BILATERAL L2, L3, L4 MEDIAL BRANCH RADIOFREQUENCY NEUROTOMY Indications: Matt is referred by RIZWAN Jackson for treatment of facet arthropathy. Physician: Matt Daniel Total Fluoroscopy time (seconds): 20 Total sedation minutes: 38 Complications: none Procedure in detail & Post-procedure care: DESCRIPTION OF PROCEDURE Bilateral L2, L3, L4 medial branch radiofrequency neurotomy The patient is well known to this clinic having undergone previous facet injections with good but temporary relief. The patient has experienced appropriate, concordant relief with previous facet and median branch blocks but the patient's pain has been recalcitrant to further conservative measures. Therefore, based upon the patient's relief and persistent symptoms, the patient is considered an appropriate candidate for facet rhizotomy. All of the patient's questions regarding the risks versus benefits of the procedure, including, but not limited to, bleeding, infection, temporary as well as lasting nerve injury, paralysis, stroke, and , as well treatment alternatives were answered to satisfaction. After obtaining informed consent, denial of pertinent drug allergies, as well as being made aware of the potential risks of bleeding, infection, spinal cord trauma, paralysis, temporary and permanent nerve damage, seizure, stroke, and possible , the patient was brought to the fluoroscopy suite and positioned prone on the fluoroscopy table. The lumbar region was prepped with Chlorhexadine and covered with a fenestrated drape in the usual sterile fashion. Appropriate monitors applied including pulse oximeter, pulse, and blood pressure for regular monitoring throughout the procedure. After review of previous anaesthesic history and IV conscious sedation the patient was deemed safe to proceed with today's procedure with IV conscious sedation as ASA class II designation. Safety time-out was performed to confirm patient ID, procedure to be performed and site of procedure. IV sedation was accomplished with a combination of 2mg of Versed and 50mcg of Fentanyl administered by the RN after DO order, titrated to patient comfort during the course of the procedure while the patient remained responsive to all verbal commands. After local infiltration using 1% lidocaine, under fluoroscopic guidance, a 10- cm RF insulated needle with a 10-mm active tip was positioned parallel to the junction of the right the superior articulating process where the L4 medial branch resides. Needle placement was confirmed with motor stimulation of .5v on the right which produced local stimulation without radicular component. The stimulation was then increased to 2v with, once again, only local multifidus stimulation without radicular component. The needle was then removed and the identical procedure was performed along the length of the right L3 medial branch with motor stimulation at .7v on the right. The identical procedure was once again performed along the length of the right L2 and medial branch with motor stimulation of .5v on the right. The medial branches were then anesthetised with 0.5% marcaine. This was then followed by two discreet lesions performed at 80 degrees Celsius for 90 seconds each. The identical procedures were repeated on the left. The patient tolerated the procedure well without signs or symptoms of complications prior to transfer to the recovery area continued monitoring without incident. The patient was then transferred to the recovery area where they were observed for an appropriate period of time after the injection. The patient reported a VAS score of 9 prior to the procedure and a post-procedure VAS of 0. POST OP INSTRUCTIONS The patient was provided a Pain Log to continue to record the patient's response to the target-specific procedure prior to the patient's follow-up visit with the referring physician. Additionally, specific post-injection care instructions and a contact number to our office were provided if concerns arise regarding possible complications associated with the procedure are suspected.
== END 2023-07-07 12:32 | disposition home or self-care (01) ==
PROVIDERS: PCP Nurse Practitioner Family; Referring Provider Physical Medicine & Rehabilitation; Visit Provider Physical Medicine & Rehabilitation
DX: M47.816 Spondylosis without myelopathy or radiculopathy, lumbar region (principal)
CPT/HCPCS: 64635; 64636; 99152; 99153; J2250; J3010

== ENCOUNTER → 2023-07-10 13:24 | Outpatient (CLI) | payer MEDICARE, OTHER, SELFPAY ==
--- NOTE | 2023-07-10 | DI.CT.S_ITS ---
PROCEDURE: CT SINUS SCREEN WO CON INDICATIONS: Chronic frontal sinusitis TECHNIQUE: Noncontrast 3.0 mm axial images acquired from the frontal sinuses to the mid-sella, with coronal and sagittal reformats. For radiation dose reduction, the following was used: automated exposure control, adjustment of mA and/or kV according to patient size. COMPARISON: None. FINDINGS: Image quality: Excellent. Maxillary Sinuses: No bony remodeling or destruction. Ygmb-ey-ludhzjoi mucosal thickening can be seen within the inferior left maxillary sinus. There is mild demineralization seen involving the medial miller of the maxillary sinuses. Ethmoid Air Cells: No bony remodeling or destruction. Sinuses are clear. Sphenoid Sinuses: No bony remodeling or destruction. Sinuses are clear. Frontal Sinuses: No bony remodeling or destruction. Sinuses are clear. Ostiomeatal Complexes: Ostiomeatal complexes are patent, yet they are constitutionally narrowed. No Hernan cells. The ostiomeatal complexes are mildly demineralized. Miscellaneous: Visualized intra-orbital contents are normal. There is a mild left-sided ian bullosa. There is mild S shaped nasal septal deviation. IMPRESSION: Focal left maxillary sinus disease. Constitutionally narrowed ostiomeatal complexes, which remain patent. Areas of bony demineralization are seen, which are consistent with chronic sinusitis. There is a small left-sided ian bullosa. Mild S shaped nasal septal deviation. Dictated by: Thony Jalloh M.D. on 07/10/2023 at 14:33 Approved by: Thony Jalloh M.D. on 07/10/2023 at 14:34
== END ==
PROVIDERS: PCP Nurse Practitioner Family; Referring Provider Internal Medicine Pulmonary Disease; Visit Provider Internal Medicine Pulmonary Disease
DX: J32.1 Chronic frontal sinusitis (principal); J32.0 Chronic maxillary sinusitis; J34.2 Deviated nasal septum; J34.3 Hypertrophy of nasal turbinates
CPT/HCPCS: 70486

== ENCOUNTER → 2023-09-22 10:22 | Outpatient (CLI) | payer MEDICARE, OTHER, SELFPAY ==
--- NOTE | 2023-09-22 | DI.RAD.S_ITS ---
PROCEDURE: XR CHEST 2V INDICATIONS: Subacute cough TECHNIQUE: 2 views of the chest were acquired. COMPARISON: CT, CT CHEST WO CON, 02/12/2023, 11:47. [facility], CR, XR CHEST 2V, 06/27/2022, 10:52. FINDINGS: Surgical changes and devices: None. Lungs and pleura: Costophrenic angle blunting suggestive scarring. Mediastinum: Mediastinal contours are normal. Heart size is enlarged. Bones and chest wall: No suspicious bony abnormalities. Soft tissues appear unremarkable. IMPRESSION: No consolidations. Dictated by: Felicia Wu M.D. on 09/22/2023 at 15:50 Approved by: Felicia Wu M.D. on 09/22/2023 at 15:52
== END ==
PROVIDERS: PCP Nurse Practitioner Family; Referring Provider Internal Medicine Pulmonary Disease; Visit Provider Internal Medicine Pulmonary Disease
DX: R05.2 Subacute cough (principal)
CPT/HCPCS: 71046

== ENCOUNTER 2024-04-26 13:07 | Outpatient (CLI) | payer MEDICARE, OTHER, SELFPAY ==
[2024-04-26] VITALS (8 sets, daily range): BP systolic 128–152; BP diastolic 70–88; PULSE 72–82; RESP 16–18; TEMP 36.4; O2SAT 94–99
--- NOTE | 2024-04-26 14:30 | DI.RAD.S_ITS ---
PROCEDURE: PAIN L INTERLAMINAR/CAUDAL INJ INDICATIONS: L1-2 translaminar MARY COMPARISON: [facility], XA, PAIN L INTERLAMINAR/CAUDAL INJ, 01/21/2022, 11:00. FINDINGS: Fluoroscopic spot filming was performed to verify placement of spinal needles at the L1-2 level(s), as labeled on the films. Appropriate location(s) of the needle tip(s) was confirmed by injection of iodinated contrast. IMPRESSION: Contrast a needle placement overlying L1-2. Dictated by: Felicia Wu M.D. on 04/26/2024 at 16:08 Approved by: Felicia Wu M.D. on 04/26/2024 at 16:09
[2024-04-26] MEDS: MIDAZOLAM 2 MG/2 ML VIAL IV (14:57)
[2024-04-26] MEDS: BUPIVACAINE 0.25% (PF) VIAL 2 ML INJ (15:00)
[2024-04-26] MEDS: BETAMETHASONE 30 MG/5 ML MDV 6 MG INJ (15:00)
[2024-04-26] MEDS: iopamidoL 15 ML VIAL 3 ML INJ (15:00)
[2024-04-26] MEDS: DEXAMETHASONE 10 MG/ML VIAL INJ (15:01)
--- NOTE | 2024-04-26 15:09 | P.PCN_ITS ---
Date/Time/Diagnoses Date of procedure: 04/26/24 Time of procedure: 15:10 Pre-procedure diagnosis: 1. HNP WITH RADICULAR FEATURES, 2. MULTILEVEL CENTRAL STENOSIS, Post-procedure diagnosis: same Procedure Notes Procedure: 1. FLUOROSCOPICALLY GUIDED CONTRAST CONTROLLED INTERLAMINAR EPIDURAL STEROID INJECTION - L1/2 Indications: Matt is referred by RIZWAN Jackson for treatment of Bilateral Foraminal Stenosis L>R LE symptoms. Physician: Matt Daniel Total Fluoroscopy time (seconds): 7 Total sedation minutes: 10 Complications: none Procedure in detail & Post-procedure care: FINDINGS Multilevel Central Spinal Stenosis with Nerve Root Compression DESCRIPTION OF PROCEDURE Fluoroscopically guided, contrast-controlled L1/2 translaminar epidural steroid injection. Following review of allergy and review of potential side effects and complications, including, but not necessarily limited to, infection, allergic reaction, local tissue breakdown, temporary as well as permanent nerve injury, paralysis, stroke and possible , the patient indicated that the patient understood and agreed to proceed. An informed consent document was signed by the patient, witnessed by a nurse, and placed in the patient's chart. Additionally, other treatment options including modalities, medications, and physical therapy were reviewed with the patient. After review of previous anaesthesic history and IV conscious sedation the patient was deemed safe to proceed with todays procedure with IV conscious sedation as ASA class II designation. Safety time-out was performed to confirm patient ID, procedure to be performed and site of procedure. IV sedation was accomplished with a combination of 2mg of Versed was administered by the RN after DO order, titrated to patient comfort during the course of the procedure while the patient remained responsive to all verbal commands In the prone position, following sterile prep and drape of the lumbar region, the L1/2 translaminar space was identified fluoroscopically. The skin was anesthetized via a 25-gauge, 1.5-inch needle with 1% lidocaine solution. At this point, a 22-gauge short bevel spinal needle was atraumatically introduced and advanced under fluoroscopic guidance into the region of the L1/2 translaminar space. Depth was confirmed on lateral view. Radiological data, including multiple fluoroscopic views of the lumbar spine, reveal a spinal needle at the L1/2 translaminar space. Lateral views then show placement of the needle in the epidural space. Subsequent views show contrast material flowing superiorly and inferiorly in the epidural space. No vascular or intrathecal uptake is observed. At this point, using loss of resistance technique with saline and air, the epidural space was entered. This was confirmed following negative aspiration with injection of approximately 1.5 cc of Isovue 200, showing excellent epidural flow without vascular or intrathecal uptake. At this point, 1 cc of 1% lid ocaine solution combined with 2cc or 10mg of dexamethasone and 6mg of betamethasone was injected without incident. The patient tolerated the procedure well without signs or symptoms of complications prior to transfer to the recovery area continued monitoring without incident. The patient was then transferred to the recovery area where they were observed for an appropriate period of time after the injection. The patient reported a VAS score of 7 prior to the procedure and a post- procedure VAS of 1. POST OP INSTRUCTIONS The patient was provided a Pain Log to continue to record their response to the target-specific procedure prior to follow-up visit with their referring physician. Additionally, specific post-injection care instructions and a contact number to our office were provided if concerns arise regarding possible complications associated with the procedure are suspected.
== END 2024-04-26 15:32 | disposition home or self-care (01) ==
PROVIDERS: PCP Nurse Practitioner Family; Referring Provider Physical Medicine & Rehabilitation; Visit Provider Physical Medicine & Rehabilitation
DX: M51.16 Intervertebral disc disorders with radiculopathy, lumbar region (principal); M48.061 Spinal stenosis, lumbar region without neurogenic claudication
CPT/HCPCS: 62323; 99152; J0702; J1100; J2250; J3490

== ENCOUNTER 2024-12-27 13:13 | Outpatient (CLI) | payer MEDICARE, OTHER, SELFPAY ==
[2024-12-27] VITALS (9 sets, daily range): BP systolic 130–183; BP diastolic 63–100; PULSE 84–90; RESP 14–19; TEMP 36.6; O2SAT 95–98
--- NOTE | 2024-12-27 13:14 | DI.RAD.S_ITS ---
PROCEDURE: PAIN L INTERLAMINAR/CAUDAL INJ INDICATIONS: L 2/3 TL MARY COMPARISON: [facility], XA, PAIN L INTERLAMINAR/CAUDAL INJ, 04/26/2024, 15:00. FINDINGS/IMPRESSION: Fluoroscopic spot filming was performed to verify placement of spinal needles at the L2-L3 level(s), as labeled on the films. Appropriate location(s) of the needle tip(s) was confirmed by injection of iodinated contrast. Dictated by: Angie Chavez MD, PhD on 12/28/2024 at 10:25 Approved by: Angie Chavez MD, PhD on 12/28/2024 at 10:25
[2024-12-27] MEDS: MIDAZOLAM 2 MG/2 ML VIAL IV (14:27)
[2024-12-27] MEDS: BUPIVACAINE 0.25% (PF) VIAL 2 ML INJ (14:32)
[2024-12-27] MEDS: iopamidoL 15 ML VIAL 3 ML INJ (14:33)
[2024-12-27] MEDS: DEXAMETHASONE 10 MG/ML VIAL INJ (14:33)
[2024-12-27] MEDS: BETAMETHASONE 30 MG/5 ML MDV 12 MG INJ (14:33)
--- NOTE | 2024-12-27 14:44 | PM.PROC.IR.1 ---
Date/Time/Diagnoses Date of procedure: 12/27/24 Time of procedure: 14:44 Pre-procedure diagnosis: 1. HNP WITH RADICULAR FEATURES, 2. MULTILEVEL CENTRAL STENOSIS, Post-procedure diagnosis: same Procedure Notes Procedure: 1. FLUOROSCOPICALLY GUIDED CONTRAST CONTROLLED INTERLAMINAR EPIDURAL STEROID INJECTION - L2/3 Indications: Matt is referred by RIZWAN Jackson for treatment of Bilateral Foraminal Stenosis L>R LE symptoms. Physician: Matt Daniel Total Fluoroscopy time (seconds): 8 Total sedation minutes: 11 Complications: none Procedure in detail & Post-procedure care: FINDINGS Multilevel Central Spinal Stenosis with Nerve Root Compression DESCRIPTION OF PROCEDURE Fluoroscopically guided, contrast-controlled L2/3 translaminar epidural steroid injection. Following review of allergy and review of potential side effects and complications, including, but not necessarily limited to, infection, allergic reaction, local tissue breakdown, temporary as well as permanent nerve injury, paralysis, stroke and possible , the patient indicated that the patient understood and agreed to proceed. An informed consent document was signed by the patient, witnessed by a nurse, and placed in the patient's chart. Additionally, other treatment options including modalities, medications, and physical therapy were reviewed with the patient. After review of previous anaesthesic history and IV conscious sedation the patient was deemed safe to proceed with today?s procedure with IV conscious sedation as ASA class II designation. Safety time-out was performed to confirm patient ID, procedure to be performed and site of procedure. IV sedation was accomplished with a combination of 2mg Versed administered by the RN after DO order, titrated to patient comfort during the course of the procedure while the patient remained responsive to all verbal commands. In the prone position, following sterile prep and drape of the lumbar region,the L2/3 translaminar space was identified fluoroscopically. The skin was anesthetized via a 25-gauge, 1.5-inch needle with 1% lidocaine solution. At this point, a 22-gauge short bevel spinal needle was atraumatically introduced and advanced under fluoroscopic guidance into the region of the L2/3 translaminar space. Depth was confirmed on lateral view. Radiological data, including multiple fluoroscopic views of the lumbar spine, reveal a spinal needle at the L2/3 translaminar space. Lateral views then show placement of the needle in the epidural space. Subsequent views show contrast material flowing superiorly and inferiorly in the epidural space. No vascular or intrathecal uptake is observed. At this point, using loss of resistance technique with saline and air, the epidural space was entered. This was confirmed following negative aspiration with injection of approximately 1.5 cc of Isovue 200, showing excellent epidural flow without vascular or intrathecal uptake. At this point, 1 cc of 1% lidocaine solution combined with 2cc or 10mg of dexamethasone and 6mg of betamethasone was injected without incident. The patient tolerated the procedure well without signs or symptoms of complications prior to transfer to the recovery area continued monitoring without incident. The patient was then transferred to the recovery area where they were observed for an appropriate period of time after the injection. The patient reported a VAS score of 6 prior to the procedure and a post-procedure VAS of 0. POST OP INSTRUCTIONS The patient was provided a Pain Log to continue to record their response to the target-specific procedure prior to follow-up visit with their referring physician. Additionally, specific post-injection care instructions and a contact number to our office were provided if concerns arise regarding possible complications associated with the procedure are suspected.
== END 2024-12-27 15:00 | disposition home or self-care (01) ==
PROVIDERS: PCP Nurse Practitioner Family; Referring Provider Physical Medicine & Rehabilitation; Visit Provider Physical Medicine & Rehabilitation
DX: M51.16 Intervertebral disc disorders with radiculopathy, lumbar region (principal); M48.061 Spinal stenosis, lumbar region without neurogenic claudication
CPT/HCPCS: 62323; 99152; J0702; J1100; J2250; J3490

== ENCOUNTER → 2025-05-26 13:58 | Outpatient (CLI) | payer MEDICARE, OTHER, SELFPAY ==
--- NOTE | 2025-05-26 14:00 | DI.RAD.S_ITS ---
PROCEDURE: XR LUMBAR SPINE MIN 4V INDICATIONS: BACK PAIN TECHNIQUE: 5 views of the lumbar spine were acquired, including bilateral oblique views. COMPARISON: [facility], CT, CT ABDOMEN PELVIS W CON, 09/04/2022, 11:57. [facility], MR, MR LUMBAR SPINE WO CON, 04/11/2020, 13:09. [facility], CR, XR LUMBAR SPINE MIN 4V, 05/26/2018, 12:15. [facility], CR, XR LUMBAR SPINE MIN 4V, 04/11/2020, 13:23. [facility], CR, XR LUMBAR SPINE MIN 4V, 10/16/2022, 12:22. FINDINGS: Bones: 5 nonrib-bearing vertebrae are present. No vertebral body compression fractures. No suspicious bony lesions. There is mild retrolisthesis seen at L2-L3 and at L3-L4. There is moderate to severe disc space narrowing seen at L2-L3, with fiqq-bh-[id number] disc space narrowing seen at the other lumbar levels. Endplate irregularity and sclerosis can be seen at L2-L3. Multiple levels of bridging endplate osteophytes can be seen, which are worst at L2-L3. Lower lumbar spine facet arthropathy is seen. Soft tissues: Overlying bowel gas pattern is normal. No suspicious soft tissue calcifications. Oblique images: No pars defects. IMPRESSION: Multiple levels of lumbar spine degenerative change can be seen, which are worst by plain film at the L2-L3 level. If it would be helpful for clinical management decision making, please consider a dedicated, scheduled lumbar spine MRI for further evaluation (assuming that there is no contraindication). Dictated by: Thony Jalloh M.D. on 05/26/2025 at 13:35 Approved by: Thony Jalloh M.D. on 05/26/2025 at 13:38
== END ==
PROVIDERS: PCP Nurse Practitioner Family; Referring Provider Physical Medicine & Rehabilitation; Visit Provider Physical Medicine & Rehabilitation
DX: M47.27 Other spondylosis with radiculopathy, lumbosacral region (principal); M47.816 Spondylosis without myelopathy or radiculopathy, lumbar region; M45.0 Ankylosing spondylitis of multiple sites in spine; M51.369 Other intervertebral disc degeneration, lumbar region without mention of lumbar back pain or lower extremity pain
CPT/HCPCS: 72110

== ENCOUNTER 2025-07-04 09:14 | Outpatient (CLI) | payer MEDICARE, OTHER, SELFPAY ==
[2025-07-04] VITALS (8 sets, daily range): BP systolic 123–147; BP diastolic 65–92; PULSE 67–80; RESP 12–17; TEMP 36.5; O2SAT 95–98
[2025-07-04] MEDS: MIDAZOLAM 2 MG/2 ML VIAL IV (10:45)
[2025-07-04] MEDS: BETAMETHASONE 30 MG/5 ML MDV 12 MG INJ (10:50)
--- NOTE | 2025-07-04 11:03 | PM.PROC.IR.1 ---
Date/Time/Diagnoses Date of procedure: 07/04/25 Time of procedure: 11:03 Pre-procedure diagnosis: 1. HNP WITH RADICULAR FEATURES, 2. MULTILEVEL CENTRAL STENOSIS, Post-procedure diagnosis: same Procedure Notes Procedure: 1. FLUOROSCOPICALLY GUIDED CONTRAST CONTROLLED INTERLAMINAR EPIDURAL STEROID INJECTION - L2/3 Indications: Matt is referred by Dr. Jackson for treatment of Bilateral Foraminal Stenosis L>R LE symptoms. Physician: Matt Daniel Total Fluoroscopy time (seconds): 7 Total sedation minutes: 10 Complications: none Procedure in detail & Post-procedure care: FINDINGS Multilevel Central Spinal Stenosis with Nerve Root Compression DESCRIPTION OF PROCEDURE Fluoroscopically guided, contrast-controlled L2/3 translaminar epidural steroid injection. Following review of allergy and review of potential side effects and complications, including, but not necessarily limited to, infection, allergic reaction, local tissue breakdown, temporary as well as permanent nerve injury, paralysis, stroke and possible , the patient indicated that the patient understood and agreed to proceed. An informed consent document was signed by the patient, witnessed by a nurse, and placed in the patient's chart. Additionally, other treatment options including modalities, medications, and physical therapy were reviewed with the patient. After review of previous anaesthesic history and IV conscious sedation the patient was deemed safe to proceed with today?s procedure with IV conscious sedation as ASA class II designation. Safety time-out was performed to confirm patient ID, procedure to be performed and site of procedure. IV sedation was accomplished with a combination of 2mg Versed administered by the RN after DO order, titrated to patient comfort during the course of the procedure while the patient remained responsive to all verbal commands. In the prone position, following sterile prep and drape of the lumbar region,the L2/3 translaminar space was identified fluoroscopically. The skin was anesthetized via a 25-gauge, 1.5-inch needle with 1% lidocaine solution. At this point, a 22-gauge short bevel spinal needle was atraumatically introduced and advanced under fluoroscopic guidance into the region of the L2/3 translaminar space. Depth was confirmed on lateral view. Radiological data, including multiple fluoroscopic views of the lumbar spine, reveal a spinal needle at the L2/3 translaminar space. Lateral views then show placement of the needle in the epidural space. Subsequent views show contrast material flowing superiorly and inferiorly in the epidural space. No vascular or intrathecal uptake is observed. At this point, using loss of resistance technique with saline and air, the epidural space was entered. This was confirmed following negative aspiration with injection of approximately 1.5 cc of Isovue 200, showing excellent epidural flow without vascular or intrathecal uptake. At this point, 1cc of 0.25% marcaine solution combined with 3cc or 10mg of dexamethasone and 12mg of betamethasone was injected without incident. The patient tolerated the procedure well without signs or symptoms of complications prior to transfer to the recovery area continued monitoring without incident. The patient was then transferred to the recovery area where they were observed for an appropriate period of time after the injection. The patient reported a VAS score of 6 prior to the procedure and a post-procedure VAS of 0. POST OP INSTRUCTIONS The patient was provided a Pain Log to continue to record their response to the target-specific procedure prior to follow-up visit with their referring physician. Additionally, specific post-injection care instructions and a contact number to our office were provided if concerns arise regarding possible complications associated with the procedure are suspected.
== END 2025-07-04 11:20 | disposition home or self-care (01) ==
LOC: RAD 09:15
PROVIDERS: PCP Nurse Practitioner Family; Referring Provider Physical Medicine & Rehabilitation; Visit Provider Physical Medicine & Rehabilitation
DX: M51.16 Intervertebral disc disorders with radiculopathy, lumbar region (principal); M48.061 Spinal stenosis, lumbar region without neurogenic claudication
CPT/HCPCS: 62323; 99152; J0702; J1100; J2250